=== PATIENT | male | born 1955 | race Caucasian/White ===

== ENCOUNTER 2016-08-25 15:26 | Emergency (ER) | payer OTHER ==
[~2016-08-25] VITALS: Ht 167.6 cm; Wt 97.0 kg
[~2016-08-25 15:26] MED LIST: LISI-329 PO
[2016-08-25 15:31] VITALS: Ht 167.6 cm; Wt 97.0 kg
[2016-08-25 17:43] LABS: ADD UMIC YES; URINE BILIRUBIN (Dip) NEGATIVE (NEGATIVE); URINE BLOOD (Dip) TRACE (NEGATIVE); URINE COLOR LT. YELLOW (YELLOW); URINE GLUCOSE (Dip) NEGATIVE (NEGATIVE); URINE KETONES (Dip) NEGATIVE (NEGATIVE); URINE LEUKOCYTE ESTERASE (Dip) NEGATIVE (NEGATIVE); URINE NITRITE (Dip) NEGATIVE (NEGATIVE); URINE TOTAL PROTEIN (Dip) NEGATIVE (NEGATIVE); URINE UROBILINOGEN (Dip) 0.2 E.U./dL (0.1-1.0)
[2016-08-25 18:03] LABS: SQUAMOUS EPITHELIAL CELL,UR FEW; URINE RBCS 0-2 /HPF (0)
--- NOTE | 2016-08-25 18:20 | ERD ---
ER Documentation Chief Complaint Date/Time DATE: 08/25/16 TIME: 18:19 Chief Complaint PAINFUL URINATION X 1 WEEK HPI 61-year-old male comes to the emergency department with painful urination over the past week, he has bilateral scrotal pain. Patient states that he has been on the left, sharp pain bilaterally. No fevers, chills, vomiting. ROS All systems reviewed and are negative except as per history of present illness. Medications Home Meds Reported Medications Lisinopril-Hydrochlorothiazide (Lisinopril-HCTZ) 20-25 Mg Tab, 1 TAB PO DAILY, # 30 TAB 09/15/15 Allergies Allergies: Coded Allergies: No Known Allergy (Unverified , 09/15/15) PMhx/Soc History of Surgery: Yes (COLOSTOMY ) Anesthesia Reaction: No Hx Neurological Disorder: No Hx Respiratory Disorders: No Hx Cardiac Disorders: Yes (HTN) Hx Psychiatric Problems: No Hx Miscellaneous Medical Probl: No Hx Alcohol Use: No Hx Substance Use: No Hx Tobacco Use: No Physical Exam Vitals Vital Signs Date Time Temp Pulse Resp B/P Pulse Ox O2 Delivery O2 Flow Rate FiO2 08/25/16 15:31 98.2 76 19 126/75 95 Physical Exam General: Well-developed, well-nourished. The patient appears in no acute distress. HEENT: Head is normocephalic, atraumatic. No scleral icterus. . Neck: Supple. Nontender. Lungs: Clear to auscultation. Normal air movement. Heart: Regular rate and rhythm. S1 and S2 are normal. No murmurs, gallops, or rubs. Abdomen: Soft, nontender, nondistended. Bowel sounds are normoactive. Exam: Scrotum: Normal Hernia: None Testes/Epid: Non-tender w/ normal lie Cremaster: Reflex intact Lymph: No inguinal lymphadenopathy Discharge: None Extremities: No clubbing or cyanosis. Normal pulses. Moving extremities x 4. No weakness. Neurologic: Alert and oriented 3. No focal deficits. Skin: Normal turgor. No rash or lesions. Results 24 hrs Laboratory Tests Test 08/25/16 17:35 Urine Bilirubin NEGATIVE Urine Clarity CLEAR Urine Color LT. YELLOW Urine Glucose NEGATIVE% Urine Hemoglobin TRACE Urine Ketones NEGATIVE Urine Leukocyte Esterase NEGATIVE Urine Microscopic RBC 0-2/HPF Urine Microscopic WBC 0-2/HPF Urine Nitrite NEGATIVE Urine Specific [place] 1.015 Urine Squamous Epithelial Cells FEW Urine Total Protein NEGATIVE Urine Urobilinogen 0.2 E.U./dL Urine pH 5.5 PROCEDURE: US Scrotum. CLINICAL INDICATION: Right testicular pain. TECHNIQUE: Multiple sonographic images of the scrotal region were obtained utilizing a linear array transducer with grayscale and color-flow and a Doppler imaging. COMPARISON: No prior studies are available for comparison. FINDINGS: The right testicle is well visualized and has a normal echotexture. No focal areas of abnormal echogenicity are visualized. The right testicle 3.7 x 2.1 x 2.6 cm. There is normal color-flow. The right epididymis measures 14 mm and it is unremarkable in appearance. There is normal color-flow. There are 2 mm extraaxial/and minimal cyst. Large varicocele. The left testicle is well visualized and has a normal echotexture. No focal areas abnormal echogenicity are visualized. The left testicle measures 3.4 x 2.8 x 3.1 cm in appearance. There is normal color-flow. The left epididymis measures 15 mm and is unremarkable in appearance. There is normal color flow. 7 mm and adjacent 3 mm epididymal cysts/spermatoceles. Moderate to large varicocele. The scrotal wall is unremarkable. No swelling or edema is seen. No other incidental abnormality is identified. IMPRESSION: 1. No intra or extratesticular mass or abnormal blood flow. 2. Bilateral epididymal cysts/or masses. 3 bilateral varicoceles large on the right and moderate to large on the left. RPTAT:AAJJ Physician Belle Date Time Electronically viewed and signed by Physician Belle on 08/25/2016 18:54 ARMANDO/ Procedures/MDM 61-year-old male comes in with bilateral scrotal pain on and off for the past 2 weeks, patient states that he has pain when he urinates as well. Urine was unremarkable, the scrotal ultrasound shows epididymal cyst versus masses as well as varicoceles. Patient does state he has a primary care physician, I have advised patient to follow-up with a specialist, a urologist. He will be given a list of urologist to follow-up, I strongly advised him to see his primary care physician soon to get a referral to see one, patient expresses understanding and agrees. Departure Diagnosis: Primary Impression: Scrotal pain Additional Impression: Varicocele Condition: Good ANU FIELDS PA-C Aug 25, 2016 18:20
--- NOTE | 2016-08-25 18:55 | RADRPT ---
PROCEDURE: US Scrotum. CLINICAL INDICATION: Right testicular pain. TECHNIQUE: Multiple sonographic images of the scrotal region were obtained utilizing a linear arra y transducer with grayscale and color-flow and a Doppler imaging. COMPARISON: No prior studies are available for comparison. FINDINGS: The right testicle is well visualized and has a normal echotexture. No focal areas of abnormal echog enicity are visualized. The right testicle 3.7 x 2.1 x 2.6 cm. There is normal color-flow. The right epididymis measures 14 mm and it is unremarkable in appearance. There is normal color-flow. There a re 2 mm extraaxial/and minimal cyst. Large varicocele. The left testicle is well visualized and has a normal echotexture. No focal areas abnormal echogenic ity are visualized. The left testicle measures 3.4 x 2.8 x 3.1 cm in appearance. There is normal col or-flow. The left epididymis measures 15 mm and is unremarkable in appearance. There is normal colo r flow. 7 mm and adjacent 3 mm epididymal cysts/spermatoceles. Moderate to large varicocele. The scrotal wall is unremarkable. No swelling or edema is seen. No other incidental abnormality is identified. IMPRESSION: 1. No intra or extratesticular mass or abnormal blood flow. 2. Bilateral epididymal cysts/or masses. 3 bilateral varicoceles large on the right and moderate t o large on the left. RPTAT:AAJJ Physician Belle Date Time Electronically viewed and signed by Physician Belle on 08/25/2016 18:54 ARMANDO/
[2016-08-25 19:19] VITALS: BP 124/78; PULSE 72; RESP 18; TEMP 98.3
== END 2016-08-25 19:20 | disposition home or self-care (01) ==
LOC: FTE 15:26
DX: N50.82 Scrotal pain (principal); I86.1 Scrotal varices; I10 Essential (primary) hypertension
CPT/HCPCS: 76870; 81001; Z7502; 81003